=== PATIENT | female | born 1995 | race American Indian/Alaskan Native ===

== ENCOUNTER 2017-10-17 15:36 | Outpatient (CLI) | payer MEDICAID ==
[2017-10-17] MEDS ORDERED: LACTATED RINGERS 500 ML IV ONE (17:22)
[2017-10-17 18:37] VITALS: BP 101/68
[2017-10-17 18:37] LABS: Bilirubin,Urine NEG (Negative); Blood,Urine NEG (Negative); Color,Urine Straw (Yellow); Nitrite,Urine NEG (Negative); Protein,Urine <15 mg/dL mg/dL (Negative); Urobilinogen,Urine < 2.0 mg/dL (<2.0)
[2017-10-17 18:53] LABS: Amphetamine Screen,Urine PRESUMPTIVE NEGATIVE; Benzodiazepines Screen,Urine PRESUMPTIVE NEGATIVE; Cocaine Screen,Urine PRESUMPTIVE NEGATIVE; Methadone Screen,Urine PRESUMPTIVE NEGATIVE; Opiate Screen,Urine PRESUMPTIVE NEGATIVE
[2017-10-17 19:30] LABS: Cannabinoid Screen,Urine PRESUMPTIVE POSITIVE
== END 2017-10-17 19:10 | disposition home or self-care (01) ==
LOC: TRG 15:36
PROVIDERS: ATTEND Obstetrics & Gynecology
DX: O47.03 False labor before 37 completed weeks of gestation, third trimester (principal); Z3A.33 33 weeks gestation of pregnancy
CPT/HCPCS: 59025; 80307; 81001; 96360; J7120

== ENCOUNTER 2017-11-27 22:57 | Outpatient (CLI) | payer MEDICAID ==
[2017-11-27 23:26] VITALS: BP 108/70
[2017-11-28] MEDS ORDERED: LACTATED RINGERS 1,000 ML IV ONE (00:07)
[2017-11-28] MEDS ORDERED: VISTARIL PO ONE (00:57)
--- NOTE | 2017-11-28 01:21 | Ultrasound Report ---
FINAL REPORT EXAM: US OB BPP WO NON-STRESS HISTORY: wellbeing TECHNIQUE: A limited OB sonogram was obtained for obtaining a bowel physical profile. FINDINGS: For breathing movements, a total score 2 out of 2 was obtained. For movements, a total score of 2 out of 2 was obtained. For posture and tone, a total score of 2 out of 2 was obtained. For qualitative amniotic fluid volume, a total score of 2 out of 2 was obtained. The total biophysical profile score was 8 out of 8. The heart is 136 BPM. IMPRESSION: Total biophysical profile score of 8 out of 8. The heart is 136 BPM.
== END 2017-11-28 01:10 | disposition home or self-care (01) ==
LOC: TRG 22:57
PROVIDERS: ATTEND Obstetrics & Gynecology
DX: O47.1 False labor at or after 37 completed weeks of gestation (principal); Z3A.39 39 weeks gestation of pregnancy
CPT/HCPCS: 59025; 76819; 96360; J7120; Q0177

== ENCOUNTER 2021-04-30 09:47 | Inpatient (IN) | payer MEDICAID ==
[2021-04-30] MEDS ORDERED: miSOPROStol 200 MCG TAB PR PRN (10:21)
[2021-04-30] MEDS ORDERED: CARBOPROST TROMETHAMINE 250 MCG/1 ML INJ IM PRN (10:21)
[2021-04-30] MEDS ORDERED: METHYLERGONOVINE MALEATE 0.2 MG/ML VIAL IM PRN (10:21)
[2021-04-30] MEDS ORDERED: OXYTOCIN 10 UNIT/1 ML INJ IM PRN (10:21)
[2021-04-30] MEDS ORDERED: LIDOCAINE (2%) 20 MG/1 ML VIAL 20 ML MDV INFILTRATI ONE ×2 (10:21→14:48)
[2021-04-30] MEDS ORDERED: TERBUTALINE 1 MG/1 ML INJ SUB-Q PRN (10:21)
[2021-04-30] MEDS ORDERED: PROMETHAZINE 25 MG TAB PO PRN ×2 (10:21→18:17)
[2021-04-30] MEDS ORDERED: NALOXONE 0.4 MG/1 ML INJ IV PRN (10:21)
[2021-04-30] MEDS ORDERED: ePHEDrine SULFATE 50 MG/1 ML INJ IV PRN ×2 (10:21→15:33)
[2021-04-30] MEDS ORDERED: LOPERAMIDE 2 MG CAP PO PRN (10:21)
[2021-04-30] MEDS ORDERED: ONDANSETRON 4 MG/2 ML INJ IV PRN ×2 (10:21→18:17)
[2021-04-30] MEDS ORDERED: MINERAL OIL 30 ML ORAL LIQD PO PRN (10:21)
[2021-04-30] MEDS ORDERED: BUTORPHANOL 2 MG/1 ML INJ IV PRN (10:21)
[2021-04-30] MEDS ORDERED: ACETAMINOPHEN 500 MG TAB PO PRN (10:21)
[2021-04-30] MEDS ORDERED: OXYTOCIN DRIP 30 UNITS/500 ML BAG IV SCH ×3 (11:00→19:00)
[2021-04-30] MEDS: LACTATED RINGERS 1,000 ML IV SCH ×3 (11:05→16:00)
--- NOTE | 2021-04-30 11:13 | History and Physical Report ---
History of Present Illness Date of examination: 04/30/21 (Contractions) Date of admission: 04/30/21 10:36 Chief complaint: Contractions getting closer together. History of present illness: EDC Confirmation: 05/08/2021 Gestational Age: 38.6 weeks on admission Past History : 3 Term Births: 2 Premature Births: 0 Living Children: 2 Para: 2 Mult. Births: 0 Prev : 0 Aborta: 0 Elect. Ab: 0 Spont. Ab: 0 Ectopics: 0 # 1 Delivery date: 07/30/2012 Weeks Gestation: 39 labor: no Delivery type: Hours of labor: 12 Anesthesia type: epidural Delivery location: [facility] Sex: male weight: 6-12 Name: Varun # 2 Delivery date: 11/30/2017 Weeks Gestation: 39 Delivery type: Vaginal Anesthesia type: epidural Delivery location: [facility] Infant Sex: male weight: 7.25 Risk Factors: Smoked Tobacco Use: Former smoker Cigarettes: Yes Year quit: 2020 Years Since Last Quit: 0 Smokeless Tobacco Use: Never Counseled to quit/cut down: yes Passive smoke exposure: no Drug use: no HIV high-risk behavior: no Caffeine use: 1 drinks per day Alcohol use: no Exercise: no Seatbelt use: 100 % Sun Exposure: rarely Family History Risk Factors: Family History of VT in females < 65 years old: no Family History of VT in males < 55 years old: no Dietary Counseling: pn yes Previous Tobacco Use: Signed On 09/19/2018 Smoked Tobacco Use: Current every day smoker Cigarettes: Yes -- 2 cigs pack(s) per day,Smokeless Tobacco Use: Never Counseled to quit/cut down: no Drug use: no HIV high-risk behavior: no Caffeine use: 3 drinks per day Previous Alcohol Use: Signed On 09/19/2018 Alcohol use: no Exercise: yes Times per week: 2 Seatbelt use: 100 % Past Medical History: Reviewed history from 05/24/2017 and no changes required: Negative Past Medical History Past Surgical History: Reviewed history from 05/24/2017 and no changes required: negative Past Medical History Anesthesia Complications: negative Anemia: negative Autoimmune Disorder: negative Bleeding Disorder: negative Blood Transfusions: negative Breast Disease: negative Diabetes: negative Heart Disease: negative Hypertension: negative Hepatitis/Liver Disease: negative Kidney Disease/UTI: negative Neurologic/Epilepsy/Migraines: negative Phlebitis/Varicosities: negative Psychiatric: negative Pulmonary Disease/Asthma: negative Thyroid Disease: negative Hospitalizations: negative 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 Infection History Hx of STD: none HIV Risk Eval: no Hepatitis B Risk Eval: low risk Personal hx. of genital herpes: no Partner hx. of genital herpes: no Rash, Viral, or Febrile illness since last LMP? no Varicella/Chicken Pox Status: No TB Risk: no Genetic History Congenital Heart Defect: Mom: no Dad: no Juan Disease: Mom: no Dad: no Thalassemia Mom: no Dad: no Neural Tube Defect Mom: no Dad: no Down's Syndrome Mom: no Dad: no Cezar-Sachs Mom: no Dad: no Sickle Cell Disease/Trait Mom: no Dad: no Hemophilia Mom: no Dad: no Muscular Dystrophy Mom: no Dad: no Cystic Fibrosis Mom: no Dad: no [place] Chorea Mom: no Dad: no Mental Retardation Mom: no Dad: no Fragile X Mom: no Dad: no Other Genetic/Chromosomal Disorder Mom: no Dad: no Child w/other defect Mom: no Dad: no Enviromental Exposures Enviromental Exposures Reviewed Xray Exposure: no Medication, drug, or alcohol use since LMP: no Chemical/Other Exposure: no Exposure to Cat Liter: no Hx of Parvovirus (Fifth Disease): no Occupational Exposure to Children: none Active Medications: None Current Allergies: No known allergies Past History Past Medical History: no pertinent history Past Surgical History: no surgical history Family/Genetic History: none Social history: no significant social history - Obstetrical History Expected Date of Delivery: 05/08/21 Actual Gestation: 38 Week(s) 6 Day(s) : 3 Para: 2 Hx # Term Pregnancies: 2 Number of Pregnancies: 0 Spontaneous Abortions: 0 Induced : 0 Number of Living Children: 2 Medications and Allergies Allergies Allergy/AdvReac Type Severity Reaction Status Date / Time No Known Allergies Allergy Verified 04/30/21 11:39 Home Medications Medication Instructions Recorded Confirmed Last Taken Type Pnv,Calcium 72/Iron/Folic Acid 1 tab PO PRN 11/29/17 04/30/21 04/29/21 History [Pnv Plus Multivit Tab] Active Meds: Active Medications Acetaminophen (Acetaminophen 500 Mg Tab) 1,000 mg PO Q6H PRN PRN Reason: Pain, Mild (1-3) Butorphanol Tartrate (Butorphanol 2 Mg/1 Ml Inj) 1 mg IV Q2H PRN PRN Reason: Pain, Moderate(4-6) LABOR PAIN Carboprost Tromethamine (Carboprost Tromethamine 250 Mcg/1 Ml Inj) 250 mcg IM ONCE PRN PRN Reason: Uterine Bleeding Ephedrine Sulfate (Ephedrine Sulfate 50 Mg/1 Ml Inj) 10 mg IV Q2M PRN PRN Reason: Hypotension Fentanyl (Fentanyl 100 Mcg/2 Ml Inj) 100 mcg IV Q2H PRN PRN Reason: Pain,Severe (7-10) LABOR PAIN Oxytocin/Sodium Chloride (Pitocin/Ns 30 Unit/500ml) 30 units in 500 mls @ 2 mls/hr IV TITR DEBORAH; Protocol Lactated Ringer's (Lactated Ringers) 1,000 mls @ 125 mls/hr IV DIRECT DEBORAH Last Admin: 04/30/21 11:05 Dose: 999 mls/hr Documented by: Oxytocin/Sodium Chloride (Pitocin/Ns 30 Unit/500ml) 30 units in 500 mls @ 40 mls/hr IV TITR DEBORAH; Protocol Loperamide HCl (Loperamide 2 Mg Cap) 2 mg PO ONCE PRN PRN Reason: give with Hemabate Methylergonovine Maleate (Methylergonovine Maleate 0.2 Mg/Ml Vial) 0.2 mg IM ONCE PRN PRN Reason: Uterine Bleeding Mineral Oil (Mineral Oil 30 Ml Oral Liqd) 30 ml PO QHS PRN PRN Reason: Constipation Misoprostol (Misoprostol 200 Mcg Tab) 800 mcg FL ONCE PRN PRN Reason: Uterine Bleeding Naloxone HCl (Naloxone 0.4 Mg/1 Ml Inj) 0.1 mg IV Q2MIN PRN PRN Reason: Res Rate </= 8 or 02 SAT < 92% Ondansetron HCl (Ondansetron 4 Mg/2 Ml Inj) 4 mg IV Q8H PRN PRN Reason: Nausea And Vomiting Oxytocin (Oxytocin 10 Unit/1 Ml Inj) 10 unit IM ONCE PRN PRN Reason: Uterine Bleeding Promethazine HCl (Promethazine 25 Mg Tab) 25 mg PO Q6H PRN PRN Reason: Nausea And Vomiting Terbutaline Sulfate (Terbutaline 1 Mg/1 Ml Inj) 0.25 mg SUB-Q ONCE PRN PRN Reason: Hyperstimulation/Hypertonicity Review of Systems All systems: negative - Vital Signs Vital signs: Vital Signs Pulse BP 106 H 110/66 04/30/21 10:06 04/30/21 10:06 Temp Pulse Resp BP Pulse Ox 98 F 129 H 20 100/68 100 04/30/21 10:07 04/30/21 11:07 04/30/21 10:07 04/30/21 10:48 04/30/21 11:07 - Physical Exam Breasts: Positive: deferred Abdomen: Positive: normal appearance, soft Uterus: Positive: normal size (For 38 weeks gestation. ) Extremities: Positive: normal - Obstetrical FHR: category 1 Cervical Dilatation: 4 (Per loan broker) Cervical Effacement Percentage: 70 station: -2 Uterine Contraction Pattern: Regular Uterine Tone Measurement Phase: Resting Uterine Contraction Intensity: Moderate Results Result Diagrams: 04/30/21 11:07 All other labs normal. GBS NEGATIVE HBsAg Screen Negative Negative *1 RPR Non Reactive Non Reactive *2 Rubella Antibodies, IgG 4.67 index Immune >0.99 *3 Non-immune <0.90 Equivocal 0.90 - 0.99 Immune >0.99 ABO Grouping O *4 Rh Factor Positive *5 Please note: Prior records for this patient's ABO / Rh type are not available for additional verification. Antibody Screen Negative Negative *6 Tests: (2) HIV Ag/Ab with Reflex (640184) HIV Screen 4th Generation wRfx Non Reactive Non Reactive *31 Tests: (3) HCV Antibody reflex to LISA ([id number]) ! HCV Ab <0.1 s/co ratio 0.0-0.9 *32 Tests: (4) Interpretation: ([id number]) ! Interpretation: SPRCS *33 Negative Not infected with HCV, unless recent infection is suspected or other evidence exists to indicate HCV infection. Assessment and Plan A: @ 38.6 weeks, labor. Cervical exam per loan broker /-2. Intact membranes. - Patient Problems (1) with 38 completed weeks gestation Onset Date: ~04/30/21 Current Visit: Yes Status: Acute Plan to address problem: Admit to labor and delivery. Initiate IV bolus for epidural placement. Pitocin per protocol. Draw admission labs. Anticipate .
[2021-04-30] MEDS: fentaNYL 100 MCG/2 ML INJ IV PRN ×2 (11:16→14:31)
[2021-04-30 11:53] LABS: Hematocrit 33.2 % (30.3-42.9); Hemoglobin 10.8 gm/dl (10.1-14.3); Mean Corpuscular HGB Conc 33 % (30-34); Mean Corpuscular Volume 84 fl (79-97); Platelet Count 302 K/mm3 (140-440); Red Blood Count 3.98 M/mm3 (3.65-5.03); Red Cell Distribution Width 16.1 % (13.2-15.2)
--- NOTE | 2021-04-30 13:11 | Progress Note ---
Assessment and Plan A: 25 y.o. @ 38.6 wks in labor. Cervical exam per RN 4.5/70/-2. Ctxs q 2 minutes. P: Continue with labor and delivery care. Anticipate . Subjective - Subjective Date of service: 04/30/21 (Declines epidural) Principal diagnosis: IUP @ 38.6 wks, augmentation of labor Patient reports: contractions (Feeling contractions but declines epidural.) Objective - Vital Signs Vital Signs: Vital Signs - 12hr 04/30/21 04/30/21 04/30/21 10:06 10:07 10:12 Temperature 98 F Pulse Rate 106 H 101 H 111 H Respiratory 20 Rate Blood Pressure 110/66 Blood Pressure 110/66 [Left] O2 Sat by Pulse 100 100 Oximetry 04/30/21 04/30/21 04/30/21 10:17 10:22 10:32 Temperature Pulse Rate 111 H 114 H 106 H Respiratory Rate Blood Pressure Blood Pressure [Left] O2 Sat by Pulse 100 99 100 Oximetry 04/30/21 04/30/21 04/30/21 10:37 10:42 10:47 Temperature Pulse Rate 110 H 121 H 114 H Respiratory Rate Blood Pressure Blood Pressure [Left] O2 Sat by Pulse 100 100 100 Oximetry 04/30/21 04/30/21 04/30/21 10:48 10:52 10:57 Temperature Pulse Rate 118 H 106 H 118 H Respiratory Rate Blood Pressure 100/68 Blood Pressure [Left] O2 Sat by Pulse 100 99 Oximetry 04/30/21 04/30/21 04/30/21 11:02 11:05 11:07 Temperature 97.6 F Pulse Rate 120 H 129 H Respiratory 20 Rate Blood Pressure Blood Pressure [Left] O2 Sat by Pulse 100 100 Oximetry 04/30/21 04/30/21 04/30/21 11:12 11:17 11:21 Temperature Pulse Rate 111 H 108 H 110 H Respiratory Rate Blood Pressure 119/72 Blood Pressure [Left] O2 Sat by Pulse 100 100 Oximetry 04/30/21 04/30/21 04/30/21 11:22 11:27 11:32 Temperature Pulse Rate 107 H 102 H 103 H Respiratory Rate Blood Pressure Blood Pressure [Left] O2 Sat by Pulse 100 99 100 Oximetry 04/30/21 04/30/21 04/30/21 11:37 11:42 11:47 Temperature Pulse Rate 106 H 92 H 99 H Respiratory Rate Blood Pressure Blood Pressure [Left] O2 Sat by Pulse 100 100 100 Oximetry 04/30/21 04/30/21 04/30/21 11:52 11:57 12:02 Temperature Pulse Rate 98 H 99 H 104 H Respiratory Rate Blood Pressure Blood Pressure [Left] O2 Sat by Pulse 99 99 100 Oximetry 04/30/21 04/30/21 04/30/21 12:07 12:12 12:17 Temperature Pulse Rate 90 94 H 89 Respiratory Rate Blood Pressure Blood Pressure [Left] O2 Sat by Pulse 100 100 100 Oximetry 04/30/21 04/30/21 04/30/21 12:22 12:27 12:32 Temperature Pulse Rate 94 H 112 H 93 H Respiratory Rate Blood Pressure Blood Pressure [Left] O2 Sat by Pulse 100 100 100 Oximetry 04/30/21 04/30/21 04/30/21 12:35 12:37 12:42 Temperature 97.6 F Pulse Rate 95 H 95 H 92 H Respiratory 18 Rate Blood Pressure 108/64 Blood Pressure [Left] O2 Sat by Pulse 100 100 Oximetry 04/30/21 04/30/21 04/30/21 12:47 12:51 12:52 Temperature Pulse Rate 103 H 85 95 H Respiratory Rate Blood Pressure 102/68 Blood Pressure [Left] O2 Sat by Pulse 100 100 Oximetry 04/30/21 04/30/21 12:57 13:02 Temperature Pulse Rate 110 H 98 H Respiratory Rate Blood Pressure Blood Pressure [Left] O2 Sat by Pulse 100 99 Oximetry - Exam Narrative Exam: Pt does not want her water broken at this time. She also states that she would eventually like an epidural but declines at this time. Discussed plan of care. Will do cervical exam in a few hours. Per RN patient was 4.5/70/-2. If contractions slow down, will initiate Pitocin. Currently ctxs are q 2-3 minutes apart. Breasts: deferred Cardiovascular: Regular rate Lungs: Normal air movement Abdomen: Present: normal appearance FHR: category 1 Uterine Contraction Monitor Mode: External Cervical Dilatation: 4.5 (Per RN taking care of patient) Cervical Effacement Percentage: 70 station: -2 Uterine Contraction Pattern: Regular Uterine Tone Measurement Phase: Resting Uterine Contraction Intensity: Moderate Extremities: normal - Labs Labs: Abnormal Labs 04/30/21 11:07 MCH 27 L RDW 16.1 H Laboratory Results - last 24 hr 04/30/21 04/30/21 04/30/21 11:07 11:07 11:07 WBC 7.0 RBC 3.98 Hgb 10.8 Hct 33.2 MCV 84 MCH 27 L MCHC 33 RDW 16.1 H Plt Count 302 Syphilis IgG Antibody Nonreactive Blood Type O POSITIVE Antibody Screen Negative
[2021-04-30] MEDS ORDERED: NALOXONE 2 MG/2 ML INJ IV PRN (15:33)
--- NOTE | 2021-04-30 15:33 | Anesthesia Consultation ---
Anesthesia Consult and Med Hx Date of service: 04/30/21 - Airway Anesthetic Teeth Evaluation: Poor ROM Head & Neck: Adequate Mental/Hyoid Distance: Adequate Mallampati Class: Class II Intubation Access Assessment: Good - Pulmonary Exam CTA: Yes - Cardiac Exam Cardiac Exam: RRR - Pre-Operative Health Status ASA Pre-Surgery Classification: ASA2 Proposed Anesthetic Plan: Epidural - Pulmonary Hx Smoking: No (former smoker stop 2019) Hx Asthma: No Hx Respiratory Symptoms: No SOB: No COPD: No Home Oxygen Therapy: No Hx Pneumonia: No Hx Sleep Apnea: No - Cardiovascular System Hx Hypertension: No Hx Coronary Artery Disease: No Hx Heart Attack/AMI: No Hx Angina: No Hx Percutaneous Transluminal Coronary Angioplasty (PTCA): No Hx Cardia Arrhythmia: No Hx Pacemaker: No Hx Internal Defibrillator: No Hx Valvular Heart Disease: No Hx Heart Murmur: No Hx Peripheral Vascular Disease: No - Central Nervous System Hx Neuromuscular Disorder: No Hx Seizures: No CVA: No Hx Back Pain: Yes Hx Psychiatric Problems: No - Gastrointestinal Hx Ulcer: No Hx Gastroesophageal Reflux Disease: Yes - Endocrine Hx Renal Disease: No Hx End Stage Renal Disease: No Hx Cirrhosis: No Hx Liver Disease: No Hx Insulin Dependent Diabetes: No Hx Hypothyroidism: No Hx Hyperthyroidism: No - Hematic Hx Anemia: Yes (both pregnancies) Hx Sickle Cell Disease: No - Other Systems Hx Alcohol Use: No Hx Substance Use: No Hx Cancer: No Hx Obesity: No
[2021-04-30] MEDS ORDERED: fentaNYL-BUPIV 2 MCG/ML-0.125% 200 MCG/100 ML BAG EPIDURAL SCH (16:00)
--- NOTE | 2021-04-30 16:20 | Progress Note ---
Labor Epidural - Labor Epidural Start Time: 15:44 Stop Time: 15:51 Performed by:: STAN THOMPSON Procedure: Patient is requesting a laboring epidural for laboring pain. Patient IDed, H&P reviewed, all questions and concerns were answered, and consent was signed. Timeout was performed at bedside. Patient in sitting position. Sterile prep and drape was performed. [3] ml of 1% lidocaine skin wheal at L[3]- L [4]. 18- gauge Exanet epidural needle was advanced to loss of resistance with saline technique 6cm. Single dural perforation via 27 guage spinal needle placed through the shaft of Epidural needle. Positive CSF via spinal needle. Negative CSF negative blood via Epidural needle. Epidural catheter advanced to [10] centimeters. [NEGATIVE] Aspiration [NEGATIVE] test dose. Negative Paresthesia. Sterile dressing applied. Patient tolerated procedure.
--- NOTE | 2021-04-30 16:38 | Progress Note ---
Assessment and Plan A: 25 y.o. @ 38.6 wks in active labor. AROM clear fluid. Cervical exam 7.5/80/0. P: Expectant management of labor. If contractions decrease will start Pitocin. Anticipate . - Patient Problems (1) with 38 completed weeks gestation Onset Date: ~04/30/21 Current Visit: Yes Status: Acute Subjective - Subjective Date of service: 04/30/21 (Comfortable with epidural. ) Principal diagnosis: IUP @ 38.6 wks, active labor, AROM clear fluid Patient reports: contractions (Feeling contractions but declines epidural.) Objective - Vital Signs Vital Signs: Vital Signs - 12hr 04/30/21 04/30/21 04/30/21 10:06 10:07 10:12 Temperature 98 F Pulse Rate 106 H 101 H 111 H Respiratory 20 Rate Blood Pressure 110/66 Blood Pressure 110/66 [Left] O2 Sat by Pulse 100 100 Oximetry 04/30/21 04/30/21 04/30/21 10:17 10:22 10:32 Temperature Pulse Rate 111 H 114 H 106 H Respiratory Rate Blood Pressure Blood Pressure [Left] O2 Sat by Pulse 100 99 100 Oximetry 04/30/21 04/30/21 04/30/21 10:37 10:42 10:47 Temperature Pulse Rate 110 H 121 H 114 H Respiratory Rate Blood Pressure Blood Pressure [Left] O2 Sat by Pulse 100 100 100 Oximetry 04/30/21 04/30/21 04/30/21 10:48 10:52 10:57 Temperature Pulse Rate 118 H 106 H 118 H Respiratory Rate Blood Pressure 100/68 Blood Pressure [Left] O2 Sat by Pulse 100 99 Oximetry 04/30/21 04/30/21 04/30/21 11:02 11:05 11:07 Temperature 97.6 F Pulse Rate 120 H 129 H Respiratory 20 Rate Blood Pressure Blood Pressure [Left] O2 Sat by Pulse 100 100 Oximetry 04/30/21 04/30/21 04/30/21 11:12 11:17 11:21 Temperature Pulse Rate 111 H 108 H 110 H Respiratory Rate Blood Pressure 119/72 Blood Pressure [Left] O2 Sat by Pulse 100 100 Oximetry 04/30/21 04/30/21 04/30/21 11:22 11:27 11:32 Temperature Pulse Rate 107 H 102 H 103 H Respiratory Rate Blood Pressure Blood Pressure [Left] O2 Sat by Pulse 100 99 100 Oximetry 04/30/21 04/30/21 04/30/21 11:37 11:42 11:47 Temperature Pulse Rate 106 H 92 H 99 H Respiratory Rate Blood Pressure Blood Pressure [Left] O2 Sat by Pulse 100 100 100 Oximetry 04/30/21 04/30/21 04/30/21 11:52 11:57 12:02 Temperature Pulse Rate 98 H 99 H 104 H Respiratory Rate Blood Pressure Blood Pressure [Left] O2 Sat by Pulse 99 99 100 Oximetry 04/30/21 04/30/21 04/30/21 12:07 12:12 12:17 Temperature Pulse Rate 90 94 H 89 Respiratory Rate Blood Pressure Blood Pressure [Left] O2 Sat by Pulse 100 100 100 Oximetry 04/30/21 04/30/21 04/30/21 12:22 12:27 12:32 Temperature Pulse Rate 94 H 112 H 93 H Respiratory Rate Blood Pressure Blood Pressure [Left] O2 Sat by Pulse 100 100 100 Oximetry 04/30/21 04/30/21 04/30/21 12:35 12:37 12:42 Temperature 97.6 F Pulse Rate 95 H 95 H 92 H Respiratory 18 Rate Blood Pressure 108/64 Blood Pressure [Left] O2 Sat by Pulse 100 100 Oximetry 04/30/21 04/30/21 04/30/21 12:47 12:51 12:52 Temperature Pulse Rate 103 H 85 95 H Respiratory Rate Blood Pressure 102/68 Blood Pressure [Left] O2 Sat by Pulse 100 100 Oximetry 04/30/21 04/30/21 04/30/21 12:57 13:02 13:07 Temperature Pulse Rate 110 H 98 H 88 Respiratory Rate Blood Pressure Blood Pressure [Left] O2 Sat by Pulse 100 99 100 Oximetry 04/30/21 04/30/21 04/30/21 13:12 13:17 13:21 Temperature Pulse Rate 89 93 H 95 H Respiratory Rate Blood Pressure 107/68 Blood Pressure [Left] O2 Sat by Pulse 100 100 Oximetry 04/30/21 04/30/21 04/30/21 13:22 13:27 13:32 Temperature Pulse Rate 91 H 92 H 93 H Respiratory Rate Blood Pressure Blood Pressure [Left] O2 Sat by Pulse 100 99 99 Oximetry 04/30/21 04/30/21 04/30/21 13:37 13:42 13:47 Temperature Pulse Rate 100 H 94 H 89 Respiratory Rate Blood Pressure Blood Pressure [Left] O2 Sat by Pulse 99 100 100 Oximetry 04/30/21 04/30/21 04/30/21 13:50 13:52 13:57 Temperature Pulse Rate 88 92 H 101 H Respiratory Rate Blood Pressure 101/63 Blood Pressure [Left] O2 Sat by Pulse 100 99 Oximetry 04/30/21 04/30/21 04/30/21 14:02 14:07 14:12 Temperature Pulse Rate 108 H 99 H 96 H Respiratory Rate Blood Pressure Blood Pressure [Left] O2 Sat by Pulse 99 100 100 Oximetry 04/30/21 04/30/21 04/30/21 14:17 14:21 14:22 Temperature Pulse Rate 99 H 101 H 100 H Respiratory Rate Blood Pressure 115/66 Blood Pressure [Left] O2 Sat by Pulse 100 100 Oximetry 04/30/21 04/30/21 04/30/21 14:27 14:32 14:37 Temperature Pulse Rate 94 H 109 H 104 H Respiratory Rate Blood Pressure Blood Pressure [Left] O2 Sat by Pulse 99 99 99 Oximetry 04/30/21 04/30/21 04/30/21 14:42 14:47 14:51 Temperature Pulse Rate 104 H 105 H 105 H Respiratory Rate Blood Pressure 104/63 Blood Pressure [Left] O2 Sat by Pulse 100 100 Oximetry 04/30/21 04/30/21 04/30/21 14:52 14:57 15:02 Temperature Pulse Rate 112 H 102 H 106 H Respiratory Rate Blood Pressure Blood Pressure [Left] O2 Sat by Pulse 100 100 99 Oximetry 04/30/21 04/30/21 04/30/21 15:07 15:12 15:17 Temperature Pulse Rate 111 H 108 H 114 H Respiratory Rate Blood Pressure Blood Pressure [Left] O2 Sat by Pulse 100 99 99 Oximetry 04/30/21 04/30/21 04/30/21 15:21 15:22 15:27 Temperature Pulse Rate 101 H 115 H 98 H Respiratory Rate Blood Pressure 109/64 Blood Pressure [Left] O2 Sat by Pulse 100 99 Oximetry 04/30/21 04/30/21 04/30/21 15:32 15:37 15:41 Temperature Pulse Rate 107 H 109 H 113 H Respiratory Rate Blood Pressure Blood Pressure [Left] O2 Sat by Pulse 99 100 87 Oximetry 04/30/21 04/30/21 04/30/21 15:42 15:47 15:50 Temperature Pulse Rate 120 H 117 H 109 H Respiratory Rate Blood Pressure 112/68 Blood Pressure [Left] O2 Sat by Pulse 99 100 Oximetry 04/30/21 04/30/21 04/30/21 15:51 15:52 15:54 Temperature Pulse Rate 106 H 97 H 100 H Respiratory Rate Blood Pressure 114/67 108/65 111/64 Blood Pressure [Left] O2 Sat by Pulse 100 Oximetry 04/30/21 04/30/21 04/30/21 15:57 15:58 16:00 Temperature Pulse Rate 94 H 93 H 95 H Respiratory Rate Blood Pressure 111/56 114/63 113/64 Blood Pressure [Left] O2 Sat by Pulse 100 Oximetry 04/30/21 04/30/21 04/30/21 16:02 16:07 16:12 Temperature Pulse Rate 102 H 95 H 103 H Respiratory Rate Blood Pressure 107/67 Blood Pressure [Left] O2 Sat by Pulse 100 100 100 Oximetry 04/30/21 04/30/21 04/30/21 16:13 16:17 16:18 Temperature Pulse Rate 102 H 100 H 97 H Respiratory Rate Blood Pressure 106/65 109/68 Blood Pressure [Left] O2 Sat by Pulse 100 Oximetry 04/30/21 04/30/21 04/30/21 16:22 16:28 16:32 Temperature Pulse Rate 92 H 95 H 86 Respiratory Rate Blood Pressure 117/71 105/64 106/66 Blood Pressure [Left] O2 Sat by Pulse 100 100 Oximetry 04/30/21 16:33 Temperature Pulse Rate 96 H Respiratory Rate Blood Pressure Blood Pressure [Left] O2 Sat by Pulse 99 Oximetry - Exam Breasts: deferred Cardiovascular: Regular rate Lungs: Normal air movement Abdomen: Present: normal appearance, soft Vulva: both: normal FHR: category 1 Uterine Contraction Monitor Mode: External Cervical Dilatation: 7.5 Cervical Effacement Percentage: 80 station: 0 Uterine Contraction Pattern: Regular Uterine Tone Measurement Phase: Resting Uterine Contraction Intensity: Moderate - Labs Labs: Abnormal Labs 04/30/21 11:07 MCH 27 L RDW 16.1 H Laboratory Results - last 24 hr 04/30/21 04/30/21 04/30/21 11:07 11:07 11:07 WBC 7.0 RBC 3.98 Hgb 10.8 Hct 33.2 MCV 84 MCH 27 L MCHC 33 RDW 16.1 H Plt Count 302 Syphilis IgG Antibody Nonreactive Blood Type O POSITIVE Antibody Screen Negative
[2021-04-30] MEDS ORDERED: miSOPROStol 200 MCG TAB PR ONE (17:51)
--- NOTE | 2021-04-30 18:12 | Procedure Note ---
OB Delivery Note - Delivery Date of Delivery: 04/30/21 Estimated blood loss: other (QBL 602ml) - Vaginal Delivery presentation: vertex Delivery position: OA Intrapartum events: none Delivery induction: none Delivery augmentation: rupture of membranes Delivery monitor: external FHT, external uterine Route of delivery: Delivery placenta: spontaneous Delivery cord: 3 umbilical vessels, other (Cord wrapped around infant's feet X1.) Episiotomy: none Delivery laceration: none Anesthesia: epidural Delivery comments: of viable male . Umbilical cord wrapped around infant's feet loose and easily reduced. Cord cut and clamped by FOC after cessation of pulse. to mother's abdomen for skin to skin. Spontaneous delivery of placenta, intact, complete, 3 vessels noted. Some brisk bleeding noted after delivery of placenta. Stopped with interventions: 800 mcg of Cytotec per rectum and Pitocin. Perineum and vagina inspected, no lacerations noted. QBL 602ml. Infant's weight 7-6. Sponges and instruments counted X2 with RN and correct X2. and mother left in stable condition in care of RN.
[2021-04-30] MEDS ORDERED: oxyCODONE /ACETAMINOPHEN 5-325MG TAB PO PRN (18:17)
[2021-04-30] MEDS ORDERED: MAGNESIUM HYDROXIDE (MOM) ORAL LIQD UDC PO PRN (18:17)
[2021-04-30] MEDS ORDERED: BENZOCAINE/MENTHOL 20/0.5% TOP SPRAY 56 GM TP PRN (18:17)
[2021-04-30] MEDS ORDERED: ACETAMINOPHEN 325 MG TAB PO PRN (18:17)
[2021-04-30] MEDS ORDERED: diphenhydrAMINE 25 MG CAP PO PRN (18:17)
[2021-04-30] MEDS ORDERED: miSOPROStol 100 MCG TAB PR PRN (18:17)
[2021-04-30] MEDS ORDERED: WITCH HAZEL/ GLYCERIN PAD TP PRN (18:17)
[2021-04-30] MEDS ORDERED: PROMETHAZINE 25 MG RECT SUPP PR PRN (18:17)
[2021-04-30] MEDS ORDERED: LANOLIN/ZINC/DIMETHICONE (LANSINOH) 7 GM TP PRN ×2 (18:17)
[2021-04-30] MEDS: IBUPROFEN 800 MG TAB PO SCH (19:34)
[2021-04-30] MEDS: DOCUSATE SODIUM 100 MG CAP PO SCH (21:39)
[2021-05-01] MEDS: IBUPROFEN 800 MG TAB PO SCH ×5 (04:52→21:41)
[2021-05-01 07:57] LABS: Hematocrit 30.1 % (30.3-42.9); Hemoglobin 9.8 gm/dl (10.1-14.3)
--- NOTE | 2021-05-01 09:08 | Progress Note ---
Assessment and Plan Pt sitting in bed eating breakfast without complaints. Reports eating, ambulating, and voiding without difficulty. Fundus firm and below umbilicus with scant vaginal bleeding noted on pad. Pt states she's breast and bottle feeding without difficulty. encouragement and education given. Pt desires discharge home tomorrow and infant circumcision in office. Precautions and F/U instructions given. All questions and concerns addressed. - Patient Problems (1) Spontaneous vaginal delivery Current Visit: Yes Status: Acute Subjective - Subjective Date of service: 05/01/21 Principal diagnosis: s/p Patient reports: appetite normal, voiding normally, pain well controlled, ambulating normally [place]: doing well, bottle feeding Objective - Vital Signs Latest vital signs: Vital Signs Temp Pulse Resp BP BP Pulse Ox 05/01/21 08:28 98.2 F 92 H 18 102/60 100 05/01/21 05:06 98.1 F 95 H 20 97/55 100 05/01/21 04:52 20 05/01/21 00:26 98.2 F 108 H 18 102/58 97 04/30/21 20:41 98.7 F 89 20 100/56 96 04/30/21 19:50 99.8 F H 20 04/30/21 19:41 96 H 119/59 04/30/21 19:26 96 H 116/55 04/30/21 18:43 104 H 106/53 100 04/30/21 18:42 77 86 04/30/21 18:38 86 100 04/30/21 18:35 106 H 94 04/30/21 18:33 109 H 91 04/30/21 18:30 97.3 F L 18 04/30/21 18:29 111 H 88 04/30/21 18:28 107 H 96 04/30/21 18:26 107 H 100/60 04/30/21 18:23 102 H 100 04/30/21 18:22 105 H 94 04/30/21 18:18 98 H 92 04/30/21 18:16 97 H 87 04/30/21 18:13 89 100 04/30/21 18:11 85 105/64 04/30/21 18:08 82 100 04/30/21 18:03 88 100 04/30/21 17:58 100 H 100 04/30/21 17:56 86 98/60 04/30/21 17:53 84 100 04/30/21 17:50 88 99/58 04/30/21 17:48 88 107/58 100 04/30/21 17:45 97.4 F L 18 04/30/21 17:43 100 H 100 04/30/21 17:41 109 H 130/76 04/30/21 17:38 99 H 99 04/30/21 17:33 102 H 100 04/30/21 17:28 101 H 100 04/30/21 17:27 104 H 117/68 04/30/21 17:23 105 H 99 04/30/21 17:18 119 H 100 04/30/21 17:13 113 H 100 04/30/21 17:11 109 H 116/63 04/30/21 17:08 106 H 100 04/30/21 17:03 98 H 100 04/30/21 16:58 111 H 100 04/30/21 16:53 103 H 100 04/30/21 16:48 100 H 118/73 100 04/30/21 16:43 88 99 04/30/21 16:42 94 H 112/67 04/30/21 16:38 94 H 100 04/30/21 16:37 92 H 106/66 04/30/21 16:33 96 H 99 04/30/21 16:32 86 106/66 04/30/21 16:30 98.0 F 20 04/30/21 16:28 95 H 105/64 100 04/30/21 16:22 92 H 117/71 100 04/30/21 16:18 97 H 109/68 04/30/21 16:17 100 H 100 04/30/21 16:13 102 H 106/65 04/30/21 16:12 103 H 100 04/30/21 16:07 95 H 107/67 100 04/30/21 16:02 102 H 100 04/30/21 16:00 95 H 113/64 04/30/21 15:58 93 H 114/63 04/30/21 15:57 94 H 111/56 100 04/30/21 15:54 100 H 111/64 04/30/21 15:52 97 H 108/65 100 04/30/21 15:51 106 H 114/67 04/30/21 15:50 109 H 112/68 04/30/21 15:47 117 H 100 04/30/21 15:42 120 H 99 04/30/21 15:41 113 H 87 04/30/21 15:37 109 H 100 04/30/21 15:32 107 H 99 04/30/21 15:27 98 H 99 04/30/21 15:22 115 H 100 04/30/21 15:21 101 H 109/64 04/30/21 15:17 114 H 99 04/30/21 15:12 108 H 99 04/30/21 15:07 111 H 100 04/30/21 15:02 106 H 99 04/30/21 14:57 102 H 100 04/30/21 14:52 112 H 100 04/30/21 14:51 105 H 104/63 04/30/21 14:47 105 H 100 04/30/21 14:42 104 H 100 04/30/21 14:37 104 H 99 04/30/21 14:32 109 H 99 04/30/21 14:27 94 H 99 04/30/21 14:22 100 H 100 04/30/21 14:21 101 H 115/66 04/30/21 14:17 99 H 100 04/30/21 14:12 96 H 100 04/30/21 14:07 99 H 100 04/30/21 14:02 108 H 99 04/30/21 13:57 101 H 99 04/30/21 13:52 92 H 100 04/30/21 13:50 88 101/63 04/30/21 13:47 89 100 04/30/21 13:42 94 H 100 04/30/21 13:37 100 H 99 04/30/21 13:32 93 H 99 04/30/21 13:27 92 H 99 04/30/21 13:22 91 H 100 04/30/21 13:21 95 H 107/68 04/30/21 13:17 93 H 100 04/30/21 13:12 89 100 04/30/21 13:07 88 100 04/30/21 13:02 98 H 99 04/30/21 12:57 110 H 100 04/30/21 12:52 95 H 100 04/30/21 12:51 85 102/68 04/30/21 12:47 103 H 100 04/30/21 12:42 92 H 100 04/30/21 12:37 95 H 100 04/30/21 12:35 97.6 F 95 H 18 108/64 04/30/21 12:32 93 H 100 04/30/21 12:27 112 H 100 04/30/21 12:22 94 H 100 04/30/21 12:17 89 100 04/30/21 12:12 94 H 100 04/30/21 12:07 90 100 04/30/21 12:02 104 H 100 04/30/21 11:57 99 H 99 04/30/21 11:52 98 H 99 04/30/21 11:47 99 H 100 04/30/21 11:42 92 H 100 04/30/21 11:37 106 H 100 04/30/21 11:32 103 H 100 04/30/21 11:27 102 H 99 04/30/21 11:22 107 H 100 04/30/21 11:21 110 H 119/72 04/30/21 11:17 108 H 100 04/30/21 11:12 111 H 100 04/30/21 11:07 129 H 100 04/30/21 11:05 97.6 F 20 04/30/21 11:02 120 H 100 04/30/21 10:57 118 H 99 04/30/21 10:52 106 H 100 04/30/21 10:48 118 H 100/68 04/30/21 10:47 114 H 100 04/30/21 10:42 121 H 100 04/30/21 10:37 110 H 100 04/30/21 10:32 106 H 100 04/30/21 10:22 114 H 99 04/30/21 10:17 111 H 100 04/30/21 10:12 111 H 100 04/30/21 10:07 98 F 101 H 20 110/66 100 04/30/21 10:06 106 H 110/66 Intake and Output 04/30/21 05/01/21 05/01/21 23:59 07:59 15:59 Intake Total 360 480 120 Output Total 2400 Balance -2040 480 120 Intake: Oral 480 120 Intake, Free Water 360 Output: Urine 2400 Indwelling Catheter 1000 Void 1400 Other: Total, Intake Amount 240 120 Total, Output Amount 1400 - Exam Breasts: Present: normal Lungs: Present: Normal air movement Abdomen: Present: normal appearance, soft Vulva: both: normal Uterus: Present: normal, firm, fundal height below umbilicus Extremities: Present: normal - Labs Labs: Abnormal lab results 04/30/21 05/01/21 Range/Units 11:07 07:31 Hgb 9.8 L (10.1-14.3) gm/dl Hct 30.1 L (30.3-42.9) % MCH 27 L (28-32) pg RDW 16.1 H (13.2-15.2) %
--- NOTE | 2021-05-01 09:45 | Post Anesthesia Evaluation ---
- Post Anesthesia Evaluation Patient Participated: Yes Airway Patent: Yes Stable Respiratory Function: Yes Nausea/Vomiting: No Temp > 96.8F: Yes Pain Manageable: Yes Adequeate Hydration: Yes Anesthesia Complications: No Block Receding Appropriately: Yes Patient on Ventilator: No
[2021-05-01] MEDS: PRENATAL VIT27-FE FUMARATE-FOLIC ACID VIT TAB PO SCH (10:27)
[2021-05-01] MEDS: DOCUSATE SODIUM 100 MG CAP PO SCH ×2 (10:27→21:41)
[2021-05-02] MEDS: IBUPROFEN 800 MG TAB PO SCH ×2 (01:15→08:00)
--- NOTE | 2021-05-02 07:35 | Discharge Summary ---
Providers - Providers Date of Admission: 04/30/21 10:36 Date of discharge: 05/02/21 Attending physician: SCOUT MATOS 04/30/21 18:19 Consult to Art Supervisor [CONS] Routine Reason For Exam: assistance with , SNS Primary care physician: SCOUT MATOS Hospitalization Reason for admission: active labor Delivery: Episiotomy: none Laceration: none Other procedures: none complications: none Discharge diagnosis: IUP at term delivered baby: male Hospital course: S: Pt doing well. Ambulating, voiding, and passing flatus okay. BC: Nexplanon. O: VSS. H/H 9.8/30.1. Fundus firm, minimal bleeding noted. A: 25 y.o. s/p . , doing well. In good condition to be discharged home. P: Discharge home with instructions. To schedule son's circumcision in the office in 1 week. To schedule visit in the office in 4-6 wks. Condition at discharge: Good Disposition: DC-01 TO HOME OR SELFCARE - Discharge Diagnoses (1) with 38 completed weeks gestation Status: Acute Plan - Discharge Medications Prescriptions: Lidocain2.5%/Prilocai2.5% [Emla] 1 applic TP ONCE #1 tube Ibuprofen [Motrin] 800 mg PO Q8HR PRN #30 tablet PRN Reason: Pain, Moderate (4-6) - Provider Discharge Summary Activity: routine, no sex for 6 weeks, no heavy lifting 4 weeks, no strenuous exercise Diet: routine Instructions: routine Additional instructions: [] Smoking cessation referral if applicable(refer to patient education folder for contact #) [] Refer to [facility] Booklet Call your doctor immediately for: * Fever > 100.5 * Heavy vaginal bleeding ( >1 pad per hour) * Severe persistent headache * Shortness of breath * Reddened, hot, painful area to leg or breast * Drainage or odor from incision. * Keep incision clean and dry at all times and follow doctor's instructions regarding bathing/showering Congratulations on your baby boy!! Please schedule your son's circumcision in the office in 1 week. You have been given a prescription for EMLA cream for your son's circumcision. Please do not use this cream at home, but bring it with you to your son's circumcision appointment. Please schedule your visit in the office in 4-6 weeks. Should you have any questions or concerns after discharge, please do not hesitate to call the office at [phone]. - Follow up plan Follow up: SCOUT MATOS MD [Primary Care Provider] - 7 Days
[2021-05-02] MEDS: DOCUSATE SODIUM 100 MG CAP PO SCH (12:05)
[2021-05-02] MEDS: PRENATAL VIT27-FE FUMARATE-FOLIC ACID VIT TAB PO SCH (12:05)
[2021-05-02 19:24] VITALS: BP 108/58
== END 2021-05-02 13:00 | disposition home or self-care (01) | DRG 775 ==
LOC: TRG 09:47 → APU 09:49 → TRG 10:22 → LD 10:36 → OB 20:08
PROVIDERS: ADMIT Obstetrics & Gynecology; ATTEND Obstetrics & Gynecology
PROC: 10E0XZZ Delivery of Products of Conception, External Approach (ICD-10-PCS; principal; 2021-04-30)
PROC: 10907ZC Drainage of Amniotic Fluid, Therapeutic from Products of Conception, Via Natural or Artificial Opening (ICD-10-PCS; 2021-04-30)
PROC: 3E0R3BZ Introduction of Anesthetic Agent into Spinal Canal, Percutaneous Approach (ICD-10-PCS; 2021-04-30)
PROC: 00HU33Z Insertion of Infusion Device into Spinal Canal, Percutaneous Approach (ICD-10-PCS; 2021-04-30)
DX: O69.9XX0 Labor and delivery complicated by cord complication, unspecified, not applicable or unspecified (principal); O99.62 Diseases of the digestive system complicating childbirth; Z3A.38 38 weeks gestation of pregnancy; Z37.0 Single live birth; Z53.20 Procedure and treatment not carried out because of patient's decision for unspecified reasons; Z87.891 Personal history of nicotine dependence; Z20.822 Contact with and (suspected) exposure to COVID-19
CPT/HCPCS: 36415; 59025; 85014; 85018; 85027; 86592; 86850; 86900; 86901; G0378; J2405; J2590; J3010; J7120; U0003